=== PATIENT | female | born 1955 | race Caucasian/White ===

== ENCOUNTER 2016-08-27 07:29 | Inpatient (IN) | payer OTHER ==
[~2016-08-27 07:29] MED LIST: ANTIVERT12.5 M1 PO; B COMPLEX1 CAP PO; BIOTIN5 M3 PO; CENTRUM SILVER1 EAC3 PO; COUMADIN5 M1 PO; COUMADIN5 M2 PO; COUMADIN6 M1 PO; COUMADIN7.5 MG PO; ESTRACE42.5 GM; ESTRADIOL TD; FISH OIL 1,2001 CAP PO; LEXAPRO20 M2 PO; NORCO 5-325 TA1 EACH PO; NORCO 5/325 TAB1 TAB PO; NORETHINDRONE TD; PERCOCET 5/3251 TAB PO; ROBINUL FORTE2 MG PO; ROBINUL PO; SENNO8.6 MG PO; TRAMADOL HCL50 M2 PO; VITAMIN C1000 M1 PO; VITAMIN D 22000 UNIT PO; XARELTO10 MG PO; [UNRECOGNIZED DRUG - OTHER] PO; [UNRECOGNIZED DRUG - OTHER] PO
[2016-08-27 08:04] LABS: BASO % 0.4 % (0-2); EOS % 3.4 % (0-7); EOSINOPHIL ABSOLUTE COUNT 0.3 tho/cmm (0.0-0.7); HGB-HEMOGLOBIN 13.9 gm/dl (12.0-15.5); IMMATURE GRANULOCYTES ABSOLUTE 0.01 tho/cmm (0-0.03); IMMATURE GRANULOCYTES PERCENT 0.1 % (0-0.3); LYMPH % 27.2 % (20-45); MCH (MEAN CORPUSCULAR HGB) 30.3 pg (28.0-32.0); MCHC MEAN CORPUSCULAR HGB CONC 33.1 % (32.0-36.0); MCV (MEAN CELL VOLUME) 91.5 fl (82.0-96.0); MEAN PLATELET VOLUME 9.9 cmc (9.4-12.4); MONO % 5.6 % (0-12); MONOCYTE ABSOLUTE COUNT 0.4 tho/cmm (0.0-1.2); NEUTROPHIL ABSOLUTE COUNT 4.7 tho/cmm (1.6-8.0); NEUTROPHIL-AUTOMATED 4.7 tho/cmm (1.6-8.0); NEUTROPHILS % 63.3 % (40-80); PLATELET COUNT 361 tho/cmm (150-450); RED BLOOD COUNT 4.59 mil/cmm (4.00-5.20); RED CELL DISTRIBUTION WIDTH 13.9 % (12.4-16.4); WHITE BLOOD COUNT 7.4 tho/cmm (4.0-10.0)
[2016-08-27 08:06] LABS: PROTHROMBIN TIME 11.2 SECONDS (9.0-13.6)
[2016-08-27 08:14] LABS: ANION GAP 10 mmol/L (0-20); BLOOD UREA NITROGEN 9 mg/dl (6-24); CALCIUM 8.8 mg/dl (8.5-10.5); CARBON DIOXIDE-VENOUS 29 mmol/L (22-32); CHLORIDE 108 mmol/l (96-110); CREATININE 0.72 mg/dl (0.50-1.10); GLUCOSE 95 mg/dL (70-110); POTASSIUM 4.3 mmol/L (3.7-5.1); SODIUM 143 mmol/L (135-145); eGFR VALUE FOR BLACK >90 mL/Min
[2016-08-28 06:18] LABS: PROTHROMBIN TIME 11.6 SECONDS (9.0-13.6)
[2016-08-28 06:27] LABS: BASO % 0.1 % (0-2); HCT-HEMATOCRIT 34.2 % (34.0-49.0); HGB-HEMOGLOBIN 11.1 gm/dl (12.0-15.5); IMMATURE GRANULOCYTES ABSOLUTE 0.04 tho/cmm (0-0.03); IMMATURE GRANULOCYTES PERCENT 0.2 % (0-0.3); LYMPH % 6.1 % (20-45); LYMPH ABSOLUTE COUNT 1.1 tho/cmm (0.8-4.5); MCH (MEAN CORPUSCULAR HGB) 29.5 pg (28.0-32.0); MCHC MEAN CORPUSCULAR HGB CONC 32.5 % (32.0-36.0); MEAN PLATELET VOLUME 10.1 cmc (9.4-12.4); MONO % 3.8 % (0-12); MONOCYTE ABSOLUTE COUNT 0.7 tho/cmm (0.0-1.2); NEUTROPHIL ABSOLUTE COUNT 16.3 tho/cmm (1.6-8.0); NEUTROPHIL-AUTOMATED 16.3 tho/cmm (1.6-8.0); NEUTROPHILS % 89.8 % (40-80); PLATELET COUNT 289 tho/cmm (150-450); RED BLOOD COUNT 3.76 mil/cmm (4.00-5.20)
[2016-08-28 06:39] LABS: WHITE BLOOD COUNT 18.1 tho/cmm (4.0-10.0)
[2016-08-29 06:57] LABS: INR 1.3 INR (0.9-1.1); PROTHROMBIN TIME 14.7 SECONDS (9.0-13.6)
[2016-08-29] MEDS ORDERED: LOVENOX40 MG/0.1 PO (10:30)
[2016-08-29] MEDS ORDERED: CELEBREX200 M1 PO (10:33)
[2016-08-29] MEDS ORDERED: ROXICODONE5 M2 PO (10:35)
[2016-08-29] MEDS ORDERED: ULTRAM50 M1 PO (10:37)
[2016-08-29] MEDS ORDERED: TYLENOL325 M2 PO (10:39)
[2016-08-29] MEDS ORDERED: MILK OF MAGNESIA PO (10:42)
[2016-08-29] MEDS ORDERED: SENOKOT-S TABL1 EACH PO (10:43)
== END 2016-08-29 14:00 | DRG 470 ==
LOC: SHSC 07:29 → ORE 09:22 → PACU 11:11 → 5EA 12:05
PROVIDERS: Internal Medicine; ADMIT Orthopaedic Surgery Foot and Ankle Surgery
PROC: 0SRD0J9 Replacement of Left Knee Joint with Synthetic Substitute, Cemented, Open Approach (ICD-10-PCS; principal; 2016-08-27)
DX: M17.12 Unilateral primary osteoarthritis, left knee (principal); D68.62 Lupus anticoagulant syndrome; Z86.718 Personal history of other venous thrombosis and embolism; Z79.01 Long term (current) use of anticoagulants; F32.9 Major depressive disorder, single episode, unspecified
CPT/HCPCS: C1713; C1776; J0171; J0690; J1650; J1885; J2270; J2795